=== PATIENT | male | born 1980 | race Two or more races ===

== ENCOUNTER 2024-08-19 02:28 | Emergency (ER) | payer MEDICAID, OTHER ==
[~2024-08-19] VITALS: Ht 182.9 cm; Wt 128.9 kg
[2024-08-19 03:28] VITALS: BP 113/65; PULSE 77; RESP 16; TEMP 98.9; O2SAT 97
[2024-08-19] MEDS ORDERED: IBUP-1456 PO (03:45)
[2024-08-19] MEDS: KETOROLAC TROMETH 60MG/2ML VIAL IM ONE (03:50)
[2024-08-19] MEDS: HYDROcodone-ACET 5/325MG TAB PO ONE (04:31)
== END 2024-08-19 04:55 | disposition home or self-care (01) ==
LOC: ER 02:28
DX: S66.811A Strain of other specified muscles, fascia and tendons at wrist and hand level, right hand, initial encounter (principal); Z79.1 Long term (current) use of non-steroidal anti-inflammatories (NSAID); X58.XXXA Exposure to other specified factors, initial encounter; Y93.89 Activity, other specified; Y92.89 Other specified places as the place of occurrence of the external cause; Y99.8 Other external cause status
CPT/HCPCS: 29125; 73110; 96372; 99283; J1885

== ENCOUNTER 2024-09-02 05:52 | Emergency (ER) | payer MEDICAID ==
[~2024-09-02] VITALS: Ht 170.2 cm; Wt 130.5 kg
[~2024-09-02 05:52] MED LIST: IBUP-1456 PO
[2024-09-02 07:21] VITALS: BP 129/82; TEMP 97.6
[2024-09-02 07:29] VITALS: PULSE 61; RESP 16; O2SAT 97
[2024-09-02 08:07] LABS: Rapid Strep A Screen-Throat Negative
[2024-09-02] MEDS ORDERED: MOME50SP11 (08:12)
== END 2024-09-02 08:17 | disposition home or self-care (01) ==
LOC: ER 05:52
DX: J02.9 Acute pharyngitis, unspecified (principal); R09.82 Postnasal drip; Z79.899 Other long term (current) drug therapy
CPT/HCPCS: 87070; 87880

== ENCOUNTER 2025-03-16 15:32 | Emergency (ER) | payer MEDICAID ==
[~2025-03-16] VITALS: Ht 182.9 cm; Wt 129.9 kg
[~2025-03-16 15:32] MED LIST changes: +MOME50SP11
--- NOTE | 2025-03-16 16:43 | ED.PDOC ---
Musculoskeletal HPI Comments A 44 YEAR OLD MALE PRESENTS TO THE ED WITH COMPLAINT OF LEFT HAND NUMBNESS SENSATION. PATIENT STATES HE HAS BEEN EXPERIENCING NUMBNESS IN HIS LEFT HAND THAT STARTED YESTERDAY. 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 PATIENT DENIES FEVER, CHILLS, SHORTNESS OF BREATH, CHEST PAIN, ABDOMINAL PAIN, NAUSEA, VOMITING, HEADACHE,EXTREMITY WEAKNESS OR OTHER COMPLAINTS. NO OTHER SYMPTOMS OR MODIFYING FACTORS AT THIS TIME. PATIENT IS ALERT, ORIENTED X 4, AND HAS STEADY GAIT. Chief Complaint: Upper Extremity Time Seen by MD: 15:36 Reviewed Notes: Nurses Notes, Medications, Allergies Allergies: Coded Allergies: NO KNOWN ALLERGIES (Unverified , 08/19/24) Home Meds Active Scripts Prednisone (Prednisone) 20 Mg Tab, 60 MG PO DAILY, #18 TAB Prov:MAGI CHAVEZ 03/16/25 Naproxen (Naproxen) 500 Mg Tab, 500 MG PO BID, #30 TAB Prov:MAGI CHAVEZ 03/16/25 Mometasone Furoate (Nasal) (Nasonex 24Hr) 50 Mcg/Act Spr, 50 MCG NA Q12HP PRN for 5 Days, #1 EA Prov:NORMA MYERS MD 09/02/24 Ibuprofen (Ibuprofen) 800 Mg Tab, 1 TAB PO TID for 5 Days, #15 TAB 1 Refill Prov:ALE WASSERMAN 08/19/24 Information Source: Patient Mode of Arrival: Ambulatory Location: Left Extremity Location: Hand Timing: Days Prehospital treatment: None Severity: Mild Able to Move Extremity: Yes Bear Weight: Fully Pain: Mild Mechanism: No Trauma, Spontaneous Circumstances: Spontaneous Onset of Symptoms: Spontaneous DVT Risk Factors: NONE Last Tetanus: Unknown Associated signs and symptoms: None Past Medical History PAST MEDICAL HISTORY: Denies Surgical History: Denies all surgeries Family History Family History: Reviewed,noncontributory to illness Social History Smoker: Non-Smoker Alcohol: Occasionally Drugs: Denies Drug Use Lives In: Home Constitutional: denies: chills, diaphoresis, fatigue, fever, malaise, sweats, weakness, others EENTM: denies: blurred vision, double vision, ear bleeding, ear discharge, ear drainage, ear pain, ear ringing, eye pain, eye redness, hearing loss, mouth p ain, mouth swelling, nasal discharge, nose bleeding, nose congestion, nose pain, photophobia, tearing, throat pain, throat swelling, voice changes, others Respiratory: denies: cough, hemoptysis, orthopnea, SOB at rest, shortness of br eath, SOB with excertion, stridor, wheezing, others Cardiovascular: denies: chest pain, dizzy spells, diaphoresis, Dyspnea on exertion, edema, irregular heart beat, left arm pain, lightheadedness, palpitations, PND, syncope, others Gastrointestinal: denies: abdomen distended, abdominal pain, blood streaked bowels, constipated, diarrhea, dysphagia, difficulty swallowing, hematemesis, melena, nausea, poor appetite, poor fluid intake, rectal bleeding, rectal pain, vomiting, others Genitourinary: denies: burning, dysuria, flank pain, frequency, hematuria, incontinence, penile discharge, penile sore, pain, testicle pain, testicle swelling, urgency, others Neurological: reports: numbness, tingling; denies: dizziness, fainting, headache, left sided numbness, left sided weakness, paresthesia, pre-existing deficit, right sided numbness, right sided weakness, seizure, speech problems, tremors, weakness, others Musculoskeletal: denies: back pain, gout, joint pain, joint swelling, muscle pain, muscle stiffness, neck pain, others Integumetry: denies: bruises, change in color, change in hair/nails, dryness, laceration, lesions, lumps, rash, wounds, others Allergic/Immunocompromised: denies: Difficulty Healing, Frequent Infections, Hives, Itching, others Hematologic/Lymphatic: denies: anemia, blood clots, easy bleeding, easy bruising, swollen glands, others Endocrine: denies: excessive hunger, excessive sweating, excessive thirst, excessive urination, flushing, intolerance to cold, intolerance to heat, unexplained weight gain, unexplained weight loss, others Psychiatric: denies: anxiety, bipolar disorder, depression, hopeless, panic disorder, schizophrenia, sleepless, suicidal, others All Other Systems: Reviewed and Negative Physical Exam General Appearance: No Apparent Distress, Normal HEENT: Normal ENT Inspection, PERRL/EOMI, Pharynx Normal, TMs Normal Neck: Full Range of Motion, Non-Tender, Normal, Normal Inspection Respiratory: Chest Non-Tender, Lungs Clear, No Accessory Muscle Use, No Respiratory Distress, Normal Breath Sounds Cardiovascular: No Edema, No JVD, No Murmur, No Gallop, Normal Peripheral Pulses, Regular Rate/Rhythm Breast Exam: Deferred Gastrointestinal: No Organomegaly, Non Tender, No Pulsatile Mass, Normal Bowel Sounds, Soft Genitalia: Deferred Pelvic: Deferred Rectal: Deferred Extremities: Normal inspection, Normal range of motion, No pedal edema, Other (TINEL'S AND PHALEN'S TEST POSITIVE. NO TENDERNESS, SWELLING AND DEFORMITY OF LEFT HAND. NO REDNESS, SWELLING AND DVT SIGNS OF LEFT UPPER EXTREMITY. ) Musculoskeletal : Apperance: Normal Neurologic: Alert, shipping specialist II-XII nml as Tested, No Motor Deficits, Normal Affect, Normal Mood, No Sensory Deficits Cerebellar Function: Normal Reflexes: Normal Skin: Dry, Normal Color, Warm Peripheral Pulses: 2+ carotid (R), 2+ carotid (L), 2+ Radial (R), 2+ Radial (L) Lymphatic: No Adenopathy Was a procedure done? Was a procedure done?: No Differential Diagnosis EXT Differential Diagnosis: Sprain, Strain Other Differential Diagnosis CARPAL TUNNEL SYNDROME X-Ray, Labs, Meds, VS Vital Signs Date Time Temp Pulse Resp B/P (MAP) Pulse Ox O2 Delivery O2 Flow Rate FiO2 03/16/25 16:47 87 18 98 Room Air 03/16/25 16:47 98.2 87 18 120/93 (102) 98 98.2 03/16/25 15:54 98.2 87 18 120/93 (102) 98 98.2 CLINICAL INDICATION: NECK PAIN TO LEFT HAND TECHNIQUE: 3 radiographic views of the cervical spine were obtained. Comparison: None FINDINGS/IMPRESSION: There is no evidence of acute fracture or dislocation. The visualized joint space is well maintained. The alignment is anatomical. There is no radiopaque foreign body. ATED BY: JOHN HOPE Jr., DO DICTATED DATE/TIME: 03/16/251712 SIGNED BY: JOHN HOPE Jr., DO SIGNED DATE/TIME: 03/16/251712 CC: X-Ray, Labs, Meds, VS Comment EXTERNAL MEDICAL RECORDS REVIEWED: [NONE] INDEPENDENT HISTORIANS: [NONE] SOCIAL DETERMINANTS OF HEALTH: [NONE] LABS ORDERED: NONE REVIEWED AND INTERPRETED RESULTS: NONE IMAGING ORDERED: XR C-SPINE TREATMENTS ORDERED: NONE PROCEDURES PERFORMED: NONE CRITICAL CARE TIME: NONE I HAVE DISCUSSED THE PATIENT WITH THE ATTENDING PHYSICIAN DR. PUENTES AND HE AGREES WITH THE PATIENT'S PLAN OF CARE AND DISPOSITION. BASED ON HISTORY OF PRESENT ILLNESS, AND PHYSICAL EXAM, PATIENT WILL BE DISCHARGED HOME. DISCUSSED PLAN FOR DISCHARGE HOME WITH RX [PREDNISONE]. MEDICATION WARNINGS GIVEN. SHARED DECISION MAKING: PATIENT INSTRUCTED TO FOLLOW UP WITH PRIMARY CARE PROVIDER IN 1-2 DAYS FOR RE-EVALUATION OF SYMPTOMS. PATIENT VERBALIZES UNDERSTANDING TO RETURN TO ED FOR NEW OR WORSENING SYMPTOMS OR IF FOLLOW UP WITH PCP CANNOT BE OBTAINED. PATIENT FEELS COMFORTABLE GOING HOME AT THIS TIME. ALL QUESTIONS ADDRESSED AT TIME OF DISCHARGE. Images Reviewed?: Images reviewed and evaluated by me Time of 1ST Reevaluation: 17:34 Reevaluation 1ST: Improved Patient Education/Counseling: Diagnosis, Treatment, Need For Follow Up Family Education/Counseling: Diagnosis, Treatment, Need For Follow Up Medical Screening: No EMC Exist At This Time Departure 1 Departure Time of Disposition: 17:34 Impression: Primary Impression: Carpal tunnel syndrome on left Disposition: 01 HOME / SELF CARE / HOMELESS Condition: Stable Additional Instructions: FOLLOW-UP WITH PCP IN 1 TO 2 DAYS. TAKE MEDICATIONS PRESCRIBED. RETURN TO ED FOR ANY NEW OR WORSENING SYMPTOMS. e-Prescriptions Prednisone (Prednisone) 20 Mg Tab 60 MG PO DAILY, #18 TAB Prov: MAGI CHAVEZ 03/16/25 Naproxen (Naproxen) 500 Mg Tab 500 MG PO BID, #30 TAB Prov: MAGI CHAVEZ 03/16/25 Discharged With: Self Critical Care Note Critical Care Time?: No Stability Stability form required: No I personally scribed for MAGI CHAVEZ ([email or web address]) on 03/16/25 at 16:43. Electronically submitted by Marc Gibson ([email or web address]). I personally scribed for MAGI CHAVEZ ([email or web address]) on 03/16/25 at 17:20. Electronically submitted by Marc Gibson ([email or web address]). MAGI CHAVEZ March 16, 2025 16:43
[2025-03-16 16:47] VITALS: BP 120/93; PULSE 87; RESP 18; TEMP 98.2; O2SAT 98
--- NOTE | 2025-03-16 17:15 | DVH ---
CLINICAL INDICATION: NECK PAIN TO LEFT HAND TECHNIQUE: 3 radiographic views of the cervical spine were obtained. Comparison: None FINDINGS/IMPRESSION: There is no evidence of acute fracture or dislocation. The visualized joint space is well maintained. The alignment is anatomical. There is no radiopaque foreign body.
[2025-03-16] MEDS ORDERED: NAPR-746 PO (17:26)
[2025-03-16] MEDS ORDERED: PRED20TA2 PO (17:26)
== END 2025-03-16 17:40 | disposition home or self-care (01) ==
LOC: ER 15:32
DX: G56.02 Carpal tunnel syndrome, left upper limb (principal)
CPT/HCPCS: 72040